=== PATIENT | male | born 1960 | race Two or more races ===

== ENCOUNTER 2017-10-14 23:41 | Emergency (ER) | payer SELFPAY ==
[~2017-10-14] VITALS: Ht 177.8 cm; Wt 96.9 kg
[2017-10-15] MEDS ORDERED: SODIUM CHLORIDE FLUSH 10ML SYR IVF ONE (01:00)
[2017-10-15] MEDS ORDERED: ACETAMINOPHEN 500 MG TABLET PO ONE (01:00)
[2017-10-15] MEDS ORDERED: ASPIRIN 81 MG TABLET CHEW PO ONE (01:00)
[2017-10-15] MEDS ORDERED: ACETAMINOPHEN 500 MG TABLET ONE (01:31)
[2017-10-15] MEDS ORDERED: ASPIRIN 81 MG TABLET CHEW ONE (01:32)
[2017-10-15 01:36] LABS: BASOPHILS # (AUTO) 0.01 x10^3/uL (0-0.1); BASOPHILS % (AUTO) 0 % (0-1); EOSINOPHILS # (AUTO) 0.13 x10^3/uL (0-0.4); EOSINOPHILS % (AUTO) 2 % (1-7); LYMPHOCYTES # (AUTO) 1.56 x10^3/uL (1-3.4); LYMPHOCYTES % (AUTO) 18 % (22-44); MD NO; MEAN CORPUSCULAR HGB CONC 33.6 g/dL (33.2-36.2); MEAN CORPUSCULAR VOLUME 89.3 fL (81-97); MEAN PLATELET VOLUME 10.4 fL (7.4-10.4); MONOCYTES # (AUTO) 0.89 x10^3/uL (0.2-0.8); MONOCYTES % (AUTO) 10 % (2-9); NEUTROPHILS # (AUTO) 6.23 x10^3/uL (1.8-6.8); NEUTROPHILS % (AUTO) 71 % (42-75); PLATELET COUNT 166 x10^3/uL (130-400); RED CELL DISTRIBUTION WIDTH 12.9 % (9.4-14.8)
[2017-10-15 01:41] LABS: D-DIMER 0.4 ug/mlFEU (0.00-0.52); INTERNATIONAL NORMALIZED RATIO 1.06 (0.93-1.1); PROTHROMBIN TIME 10.9 Seconds (9.6-11.5)
[2017-10-15 01:44] LABS: ALBUMIN 3.7 g/dL (3.4-5.0); ANION GAP 8 mmol/L (5-15); CALCIUM 8.5 mg/dL (8.5-10.1); CHLORIDE 100 mmol/L (98-107)
[2017-10-15 01:50] LABS: ALANINE AMINOTRANSFERASE 50 U/L (12-78); ALKALINE PHOSPHATASE 80 U/L (45-117); CREATININE 1.16 mg/dL (0.7-1.3); TOTAL PROTEIN 8.6 g/dL (6.4-8.2); TROPONIN I < 0.015 ng/mL (0.000-0.045)
[2017-10-15] MEDS ORDERED: TELM40TA PO (02:18)
[2017-10-15] MEDS ORDERED: ASPI-650 PO (02:18)
[2017-10-15] MEDS ORDERED: METO200T47 PO (02:18)
[2017-10-15] MEDS ORDERED: GLIM2TAB2 PO (02:18)
[2017-10-15] MEDS ORDERED: METF500T4 PO (02:18)
[2017-10-15] MEDS ORDERED: ATOR10TA9 PO (02:18)
[2017-10-15 04:57] VITALS: BP 132/77
== END 2017-10-15 04:59 | disposition home or self-care (01) ==
LOC: ED 10-15 03:01 → EDIP 10-15 04:25 → UNDOADMIN 10-15 04:25 → ED 10-15 04:59
DX: R07.9 Chest pain, unspecified (principal); R51 Headache; E11.65 Type 2 diabetes mellitus with hyperglycemia; I10 Essential (primary) hypertension; E78.5 Hyperlipidemia, unspecified
CPT/HCPCS: 36415; 71045; 80053; 84484; 85025; 85379; 85610; 85730; 93005; 99285